=== PATIENT | male | born 1985 | race American Indian/Alaskan Native ===

== ENCOUNTER 2018-07-29 06:00 | Emergency (ER) | payer SELFPAY ==
[2018-07-29] MEDS ORDERED: TORADOL IV ONE (08:36)
[2018-07-29] MEDS ORDERED: NACL 0.9% 1000 ML 1,000 ML IV ONE (08:36)
[2018-07-29] MEDS ORDERED: SUBLIMAZE IV ONE (08:36)
[2018-07-29] MEDS ORDERED: ZOFRAN IV ONE (08:36)
--- NOTE | 2018-07-29 08:45 | Emergency Department Report ---
HPI - General Chief Complaint: Pain General Time Seen by Provider: 07/29/18 08:23 - HPI HPI: Room 9 The patient is a 33-year-old male presenting with a chief complaint of weakness and body aches. The patient states for 2 days he's had diffuse body aches and weakness. Patient admits to subjective fever and a cough that has been nonproductive. Patient admits to nausea and vomiting but denies diarrhea. Patient admits to rhinorrhea. The patient is his pain a score of 10/10 Location: [See above] Duration: [See above] Quality: Aching Severity: 10/10 Modifying factors: [see above] Context: [see above] Mode of transportation: [not driving] ED Past Medical Hx - Past Medical History Previous Medical History?: No - Surgical History Past Surgical History?: No - Family History Family history: no significant - Social History Smoking Status: Current Every Day Smoker (1/3 pack per day) Substance Use Type: None (denies illicit drug use), Alcohol (occasional) - Medications Home Medications: Home Medications Medication Instructions Recorded Confirmed Last Taken Type Azithromycin [Zithromax Z-BERTHA] 0 mg PO DAILY #6 tab 07/29/18 Unknown Rx Ibuprofen [Motrin 800 MG tab] 800 mg PO Q8HR PRN #20 tablet 07/29/18 Unknown Rx Promethazine [Phenergan TAB] 25 mg PO Q6HR PRN #20 tab 07/29/18 Unknown Rx traMADol [Ultram] 50 mg PO Q6HR PRN #14 tablet 07/29/18 Unknown Rx ED Review of Systems ROS: Stated complaint: GENERAL PAIN/AMS Other details as noted in HPI Constitutional: fever (subjective) Eyes: denies: eye pain ENT: denies: throat pain Respiratory: cough Gastrointestinal: nausea, vomiting. denies: diarrhea Genitourinary: denies: dysuria Musculoskeletal: myalgia Neurological: headache Physical Exam - Physical Exam Vital Signs: Vital Signs 07/29/18 07/29/18 07/29/18 06:35 06:54 06:56 Temperature 99.5 F 99.5 F Pulse Rate 85 84 Respiratory 14 14 14 Rate Blood Pressure 135/85 [Left] O2 Sat by Pulse 96 98 98 Oximetry Physical Exam: GENERAL: The patient is well-developed well-nourished male sleeping on stretcher not appear to be in acute distress. [] HEENT: Normocephalic. Atraumatic. Extraocular motions are intact. Patient has moist mucous membranes. NECK: Supple. No meningitic signs are noted. Trachea midline CHEST/LUNGS: Clear to auscultation. There is no respiratory distress noted. Occasional cough HEART/CARDIOVASCULAR: Regular. There is no tachycardia. There is no gallop rub or murmur. ABDOMEN: Abdomen is soft, nontender. Patient has normal bowel sounds. There is no abdominal distention. SKIN: There is no rash. There is no edema. There is no diaphoresis. NEURO: The patient is awake, alert, and oriented. The patient is cooperative. The patient has normal speech MUSCULOSKELETAL: There is no evidence of acute injury. ED Course Vital Signs 07/29/18 07/29/18 07/29/18 06:35 06:54 06:56 Temperature 99.5 F 99.5 F Pulse Rate 85 84 Respiratory 14 14 14 Rate Blood Pressure 135/85 [Left] O2 Sat by Pulse 96 98 98 Oximetry ED Medical Decision Making - Lab Data Result diagrams: 07/29/18 08:50 07/29/18 08:50 Laboratory Tests 07/29/18 07/29/18 07/29/18 08:50 08:50 08:50 WBC 5.8 RBC 4.75 Hgb 14.7 Hct 43.5 MCV 92 MCH 31 MCHC 34 RDW 13.1 L Plt Count 174 Lymph % (Auto) 13.5 Josephine % (Auto) 16.0 H Eos % (Auto) 0.1 Baso % (Auto) 0.3 Lymph # 0.8 L Josephine # 0.9 H Eos # 0.0 Baso # 0.0 Seg Neutrophils % 70.1 H Seg Neutrophils # 4.0 Sodium 137 Potassium 3.9 Chloride 98.1 Carbon Dioxide 24 Anion Gap 19 BUN 8 L Creatinine 0.9 Estimated GFR > 60 BUN/Creatinine Ratio 9 Glucose 88 Calcium 9.1 Total Bilirubin 1.20 AST 27 ALT 15 Alkaline Phosphatase 77 Total Creatine Kinase 204 H Total Protein 7.6 Albumin 4.5 Albumin/Globulin Ratio 1.5 Influenza A (Rapid) Influenza B (Rapid) 07/29/18 Unknown WBC RBC Hgb Hct MCV MCH MCHC RDW Plt Count Lymph % (Auto) Josephine % (Auto) Eos % (Auto) Baso % (Auto) Lymph # Josephine # Eos # Baso # Seg Neutrophils % Seg Neutrophils # Sodium Potassium Chloride Carbon Dioxide Anion Gap BUN Creatinine Estimated GFR BUN/Creatinine Ratio Glucose Calcium Total Bilirubin AST ALT Alkaline Phosphatase Total Creatine Kinase Total Protein Albumin Albumin/Globulin Ratio Influenza A (Rapid) Negative Influenza B (Rapid) Negative - Radiology Data Radiology results: image reviewed (chest x-ray) interpreted by me: Chest x-ray-no focal infiltrates, no pneumothorax - Differential Diagnosis influenza, pneumonia, rhabdomyolysis Critical care attestation.: If time is entered above; I have spent that time in minutes in the direct care of this critically ill patient, excluding procedure time. ED Disposition Clinical Impression: Body aches, Bronchitis Disposition: DC- TO HOME OR SELFCARE Is pt being admited?: No Does the pt Need Aspirin: No Condition: Stable Instructions: Chronic Bronchitis (ED) Additional Instructions: Return to the emergency department immediately should you develop worsening symptoms, fever, inability to tolerate food or liquid or any other concerns. Prescriptions: Azithromycin [Zithromax Z-BERTHA] 0 mg PO DAILY #6 tab Ibuprofen [Motrin 800 MG tab] 800 mg PO Q8HR PRN #20 tablet PRN Reason: Pain, Moderate (4-6) Promethazine [Phenergan TAB] 25 mg PO Q6HR PRN #20 tab PRN Reason: Nausea traMADol [Ultram] 50 mg PO Q6HR PRN #14 tablet PRN Reason: Pain Referrals: BRITTON DILLON MD [Primary Care Provider] - 3-5 Days Time of Disposition: 10:21
[2018-07-29 09:06] LABS: Basophils % (Auto) 0.3 % (0.0-1.8); Eosinophils % (Auto) 0.1 % (0.0-4.3); Hematocrit 43.5 % (35.5-45.6); Hemoglobin 14.7 gm/dl (11.8-15.2); Lymphocytes # (Auto) 0.8 K/mm3 (1.2-5.4); Lymphocytes % (Auto) 13.5 % (13.4-35.0); Mean Corpuscular HGB Conc 34 % (32-34); Mean Corpuscular Volume 92 fl (84-94); Monocytes # (Auto) 0.9 K/mm3 (0.0-0.8); Platelet Count 174 K/mm3 (140-440); Red Blood Count 4.75 M/mm3 (3.65-5.03); Red Cell Distribution Width 13.1 % (13.2-15.2)
[2018-07-29 09:24] LABS: Alanine Aminotransferase 15 units/L (7-56); Albumin 4.5 g/dL (3.9-5); BUN/Creatinine Ratio 9; Blood Urea Nitrogen 8 mg/dL (9-20); Calcium 9.1 mg/dL (8.4-10.2); Hemolysis Index 5
--- NOTE | 2018-07-29 09:27 | XRay Report ---
AP CHEST: HISTORY: Cough AP view of the chest demonstrates a normal mediastinal and cardiac contour with clear lungs and normal bony and soft tissue structures. IMPRESSION: Unremarkable AP chest.
[2018-07-29 11:16] VITALS: BP 112/65
== END 2018-07-29 11:16 | disposition home or self-care (01) ==
LOC: ED 06:00
DX: J40 Bronchitis, not specified as acute or chronic (principal); R11.2 Nausea with vomiting, unspecified; M79.10 Myalgia, unspecified site; F17.200 Nicotine dependence, unspecified, uncomplicated
CPT/HCPCS: 36415; 71045; 80053; 82550; 85025; 87400; 96361; 96374; 96375; 99284; J1885; J2405; J3010; J7030